=== PATIENT | male | born 1965 | race Caucasian/White ===

== ENCOUNTER 2021-07-07 13:03 | Inpatient (IN) | payer OTHER ==
[2021-07-07 14:17] VITALS: BMI 26.4
[2021-07-07] MEDS ORDERED: MAG HYDROX/AL HYDROX/SIMETH 30 ML UNIT-DOSE CUP PO PRN (17:58)
[2021-07-07] MEDS ORDERED: MAGNESIUM CITRATE 300 ML BOTTLE PO PRN (17:58)
[2021-07-07] MEDS ORDERED: P-EPHED 60MG/TRIPROLIDI 2.5MG TABLET PO PRN (17:58)
[2021-07-07] MEDS ORDERED: ACETAMINOPHEN 325 MG TABLET (FP) PO PRN (17:58)
[2021-07-07] MEDS ORDERED: hydrOXYzine PAMOATE 25 MG CAPSULE (FP) PO PRN (17:58)
[2021-07-07] MEDS ORDERED: MAGNESIUM HYDROX 2400MG/30ML ORAL SUSPENSION 30 ML CUP PO PRN (17:58)
[2021-07-07] MEDS ORDERED: LOPERAMIDE HCL 2 MG CAPSULE PO PRN (17:58)
[2021-07-07] MEDS ORDERED: guaiFENesin 200 MG/10 ML 10 ML UNIT-DOSE CUPS PO PRN (17:58)
[2021-07-07] MEDS ORDERED: IBUPROFEN 400 MG TABLET (FP) PO PRN (17:58)
[2021-07-07] MEDS ORDERED: TUBERCULIN PPD 5 TU/0.1ML VIAL ID ONE (19:41)
[2021-07-07] MEDS: MELATONIN 5 MG TABLETS PO SCH (23:07)
[2021-07-07] MEDS: THIAMINE HCL 100 MG TABLET (FP) PO SCH (23:07)
[2021-07-08] MEDS: PRENATAL VITAMINS W/ FOLIC ACID TABLET (FP) PO SCH (09:33)
[2021-07-08] MEDS: SERTRALINE HCL 50 MG TABLET (FP) PO SCH (09:33)
[2021-07-08 11:59] LABS: PH,URINE 6.5 (5.0-8.0); URINE APPEARANCE CLEAR; URINE BILIRUBIN NEGATIVE (NEGATIVE); URINE COLOR YELLOW; URINE GLUCOSE (UA) NEGATIVE (NEGATIVE); URINE KETONE NEGATIVE (NEGATIVE); URINE LEUK ESTERASE NEGATIVE (NEGATIVE); URINE NITRITE NEGATIVE (NEGATIVE); URINE PROTEIN NEGATIVE (NEGATIVE); URINE UROBILINOGEN 0.2 mg/dL (0.2-1.0)
[2021-07-08 12:01] LABS: HEMATOCRIT 38.5 % (35.4-49); MCH 29.9 pg (25.7-33.7); MCHC 33.6 g/dl (32.0-35.9); MEAN PLT VOLUME 8.6 fl (7.5-11.1); PLATELET COUNT 203 10^3/uL (134-434); RBC 4.33 M/mm3 (4.00-5.60); WHITE BLOOD COUNT 4.2 K/mm3 (4.0-10.0)
[2021-07-08 12:23] LABS: CALCIUM 8.3 mg/dL (8.5-10.1)
[2021-07-08 12:24] LABS: ALBUMIN 3.7 g/dl (3.4-5.0); BLOOD UREA NITROGEN 19.9 mg/dL (7-18)
[2021-07-08 12:28] LABS: BILIRUBIN,TOTAL 0.8 mg/dL (0.2-1); TOT PROT 6.9 g/dl (6.4-8.2)
[2021-07-08] MEDS: THIAMINE HCL 100 MG TABLET (FP) PO SCH (21:33)
[2021-07-08] MEDS: MELATONIN 5 MG TABLETS PO SCH (21:33)
[2021-07-09] MEDS: SERTRALINE HCL 50 MG TABLET (FP) PO SCH (09:38)
[2021-07-09] MEDS: PRENATAL VITAMINS W/ FOLIC ACID TABLET (FP) PO SCH (09:38)
[2021-07-09] MEDS ORDERED: DOCUSATE SODIUM 100 MG CAPSULE (FP) PO ONE (11:34)
[2021-07-09] MEDS: DOCUSATE SODIUM 100 MG CAPSULE (FP) PO SCH ×2 (13:30→21:49)
[2021-07-09] MEDS: THIAMINE HCL 100 MG TABLET (FP) PO SCH (21:49)
[2021-07-09] MEDS: MELATONIN 5 MG TABLETS PO SCH (21:49)
[2021-07-10] MEDS: DOCUSATE SODIUM 100 MG CAPSULE (FP) PO SCH ×3 (06:46→21:52)
[2021-07-10] MEDS: SERTRALINE HCL 50 MG TABLET (FP) PO SCH (09:47)
[2021-07-10] MEDS: PRENATAL VITAMINS W/ FOLIC ACID TABLET (FP) PO SCH (09:47)
[2021-07-10] MEDS: MELATONIN 5 MG TABLETS PO SCH (21:52)
[2021-07-10] MEDS: THIAMINE HCL 100 MG TABLET (FP) PO SCH (21:52)
[2021-07-11] MEDS: DOCUSATE SODIUM 100 MG CAPSULE (FP) PO SCH ×2 (07:10→14:01)
[2021-07-11] MEDS: SERTRALINE HCL 50 MG TABLET (FP) PO SCH (09:30)
[2021-07-11] MEDS: PRENATAL VITAMINS W/ FOLIC ACID TABLET (FP) PO SCH (09:30)
[2021-07-12] MEDS: THIAMINE HCL 100 MG TABLET (FP) PO SCH ×2 (00:02→21:29)
[2021-07-12] MEDS: MELATONIN 5 MG TABLETS PO SCH ×2 (00:02→21:29)
[2021-07-12] MEDS: DOCUSATE SODIUM 100 MG CAPSULE (FP) PO SCH ×3 (00:02→13:19)
[2021-07-12] MEDS: SERTRALINE HCL 50 MG TABLET (FP) PO SCH (09:19)
[2021-07-12] MEDS: PRENATAL VITAMINS W/ FOLIC ACID TABLET (FP) PO SCH (09:19)
[2021-07-12] MEDS ORDERED: DOCUSATE SODIUM 100 MG CAPSULE (FP) PO PRN (14:45)
[2021-07-13] MEDS: SERTRALINE HCL 50 MG TABLET (FP) PO SCH (09:41)
[2021-07-13] MEDS: PRENATAL VITAMINS W/ FOLIC ACID TABLET (FP) PO SCH (09:41)
[2021-07-13] MEDS: MELATONIN 5 MG TABLETS PO SCH (21:45)
[2021-07-13] MEDS: THIAMINE HCL 100 MG TABLET (FP) PO SCH (21:45)
[2021-07-14] MEDS: PRENATAL VITAMINS W/ FOLIC ACID TABLET (FP) PO SCH (09:25)
[2021-07-14] MEDS: SERTRALINE HCL 50 MG TABLET (FP) PO SCH (09:25)
[2021-07-14] MEDS: MELATONIN 5 MG TABLETS PO SCH (21:31)
[2021-07-14] MEDS: THIAMINE HCL 100 MG TABLET (FP) PO SCH (21:31)
[2021-07-15] MEDS: SERTRALINE HCL 50 MG TABLET (FP) PO SCH (09:22)
[2021-07-15] MEDS: PRENATAL VITAMINS W/ FOLIC ACID TABLET (FP) PO SCH (09:22)
[2021-07-15] MEDS: THIAMINE HCL 100 MG TABLET (FP) PO SCH (22:43)
[2021-07-15] MEDS: MELATONIN 5 MG TABLETS PO SCH (22:43)
[2021-07-16] MEDS: SERTRALINE HCL 50 MG TABLET (FP) PO SCH (09:43)
[2021-07-16] MEDS: PRENATAL VITAMINS W/ FOLIC ACID TABLET (FP) PO SCH (09:43)
[2021-07-16] MEDS: THIAMINE HCL 100 MG TABLET (FP) PO SCH (21:42)
[2021-07-16] MEDS: MELATONIN 5 MG TABLETS PO SCH (21:42)
[2021-07-17] MEDS: SERTRALINE HCL 50 MG TABLET (FP) PO SCH (09:49)
[2021-07-17] MEDS: PRENATAL VITAMINS W/ FOLIC ACID TABLET (FP) PO SCH (09:49)
[2021-07-17] MEDS: MELATONIN 5 MG TABLETS PO SCH (21:44)
[2021-07-17] MEDS: THIAMINE HCL 100 MG TABLET (FP) PO SCH (21:45)
[2021-07-18] MEDS: PRENATAL VITAMINS W/ FOLIC ACID TABLET (FP) PO SCH (09:44)
[2021-07-18] MEDS: SERTRALINE HCL 50 MG TABLET (FP) PO SCH (09:44)
[2021-07-19] MEDS: THIAMINE HCL 100 MG TABLET (FP) PO SCH ×2 (00:25→21:32)
[2021-07-19] MEDS: MELATONIN 5 MG TABLETS PO SCH ×2 (00:25→21:32)
[2021-07-19] MEDS: SERTRALINE HCL 50 MG TABLET (FP) PO SCH (09:42)
[2021-07-19] MEDS: PRENATAL VITAMINS W/ FOLIC ACID TABLET (FP) PO SCH (09:42)
[2021-07-20] MEDS: PRENATAL VITAMINS W/ FOLIC ACID TABLET (FP) PO SCH (10:03)
[2021-07-20] MEDS: SERTRALINE HCL 50 MG TABLET (FP) PO SCH (10:03)
[2021-07-20] MEDS: THIAMINE HCL 100 MG TABLET (FP) PO SCH (22:10)
[2021-07-20] MEDS: MELATONIN 5 MG TABLETS PO SCH (22:10)
[2021-07-21] MEDS: PRENATAL VITAMINS W/ FOLIC ACID TABLET (FP) PO SCH (09:57)
[2021-07-21] MEDS: SERTRALINE HCL 50 MG TABLET (FP) PO SCH (09:57)
[2021-07-21] MEDS: MELATONIN 5 MG TABLETS PO SCH (22:02)
[2021-07-21] MEDS: THIAMINE HCL 100 MG TABLET (FP) PO SCH (22:02)
[2021-07-22 06:51] VITALS: PULSE 55
[2021-07-22] MEDS: SERTRALINE HCL 50 MG TABLET (FP) PO SCH (09:34)
[2021-07-22] MEDS: PRENATAL VITAMINS W/ FOLIC ACID TABLET (FP) PO SCH (09:34)
[2021-07-22] MEDS: MELATONIN 5 MG TABLETS PO SCH (23:31)
[2021-07-22] MEDS: THIAMINE HCL 100 MG TABLET (FP) PO SCH (23:31)
[2021-07-23 07:09] VITALS: BP 111/64; TEMP 97.4
[2021-07-23] MEDS: PRENATAL VITAMINS W/ FOLIC ACID TABLET (FP) PO SCH (09:03)
[2021-07-23] MEDS: SERTRALINE HCL 50 MG TABLET (FP) PO SCH (09:03)
== END 2021-07-23 09:15 | disposition home or self-care (01) | DRG 772 ==
LOC: YASAS 13:03 → Y3E 18:18 → Y5N 07-19 14:47
PROVIDERS: ADMIT Allergy & Immunology; ATTEND Allergy & Immunology
PROC: HZ42ZZZ Group Counseling for Substance Abuse Treatment, Cognitive-Behavioral (ICD-10-PCS; principal; 2021-07-07)
DX: F10.20 Alcohol dependence, uncomplicated (principal); F14.20 Cocaine dependence, uncomplicated; F19.24 Other psychoactive substance dependence with psychoactive substance-induced mood disorder; F32.9 Major depressive disorder, single episode, unspecified; F43.10 Post-traumatic stress disorder, unspecified; R00.1 Bradycardia, unspecified; K64.9 Unspecified hemorrhoids; Z62.810 Personal history of physical and sexual abuse in childhood; Z87.891 Personal history of nicotine dependence
CPT/HCPCS: 36415; 80053; 81003; 85027; 86780; 86803; 93005; 93010; C9803; U0003; U0005